=== PATIENT | male | born 1955 | race Caucasian/White ===

== ENCOUNTER 2020-01-01 07:02 | Day surgery (SDC) | payer OTHER ==
[2020-01-01] MEDS ORDERED: Sodium Chloride 0.9% 1,000 ML IV SCH (07:45)
[2020-01-01] MEDS ORDERED: fentaNYL 100 MCG/2 ML SDV ONE (08:21)
[2020-01-01] MEDS ORDERED: Midazolam 1 MG/ML 2 ML SDV ONE (08:22)
[2020-01-01] MEDS ORDERED: Propofol 200 MG/20 ML SDV ONE (08:22)
[2020-01-01 10:43] VITALS: BP 126/83; PULSE 60
--- NOTE | 2020-01-01 11:35 | PROC ---
DATE OF PROCEDURE: 01/01/2020 SURGEON: Ankit Canales MD PROCEDURE: Colonoscopy. PREPROCEDURE DIAGNOSIS: 1. Positive FIT test. 2. History of colon polyp. POSTPROCEDURE DIAGNOSIS: 1. Positive FIT test. 2. History of colon polyp. 3. Normal colonoscopy. DESCRIPTION OF PROCEDURE: Risks and goals of the procedure reviewed with the patient, and he gave informed consent to proceed. He was brought back to the endoscopy room, and sedation and monitoring provided by Anesthesia Service. A time-out was held prior to the procedure to confirm right site, right patient, right procedure, as well as identify any potential concerns about the procedure, of which there were none. He was placed in a left lateral decubitus position. After adequate sedation was achieved, digital rectal examination was performed, which was unremarkable. Following this, the flexible colonoscope was placed and advanced out through the colon to the cecum. Cecum was identified by the appendiceal orifice and ileocecal valve. Scope was then slowly withdrawn through the length of the colon into the rectum where it was retroflexed, straightened, and removed. There were no significant mucosal polyps, masses, or lesions seen and the procedure was, otherwise, completed without complication. He will be monitored in [facility] in outpatient area until fully recovered from IV sedation and discharged to home. Ankit Canales MD /[id number]
== END 2020-01-01 10:30 | disposition home or self-care (01) ==
LOC: JP.SDS 07:02
PROVIDERS: ATTEND Hospitalist
DX: R19.5 Other fecal abnormalities (principal); I12.9 Hypertensive chronic kidney disease with stage 1 through stage 4 chronic kidney disease, or unspecified chronic kidney disease; N18.3 Chronic kidney disease, stage 3 (moderate); F17.200 Nicotine dependence, unspecified, uncomplicated; Z86.010 Personal history of colon polyps
CPT/HCPCS: 45378; J2250; J2704; J3010; J7030